=== PATIENT | female | born 1975 | race Hispanic/Latino ===

== ENCOUNTER 2018-07-25 15:06 | Emergency (ER) | payer BC | END 2018-07-25 16:41 | disposition home or self-care (01) | LOC: EDH 15:06 | DX: S93.492A Sprain of other ligament of left ankle, initial encounter (principal); Z90.49 Acquired absence of other specified parts of digestive tract; X50.1XXA Overexertion from prolonged static or awkward postures, initial encounter; Y93.89 Activity, other specified; Y92.89 Other specified places as the place of occurrence of the external cause; Y99.8 Other external cause status | CPT/HCPCS: 73610 ==

== ENCOUNTER 2021-08-03 23:37 | Emergency (ER) | payer BC, OTHER ==
[~2021-08-03] VITALS: Ht 162.6 cm; Wt 74.8 kg
[2021-08-04 02:14] VITALS: BP 115/88
[2021-08-04] MEDS ORDERED: DOXY-336 PO (02:25)
[2021-08-04] MEDS ORDERED: ALBUHFA IH (02:25)
== END 2021-08-04 02:36 | disposition home or self-care (01) ==
LOC: EDH 23:37
DX: S60.031A Contusion of right middle finger without damage to nail, initial encounter (principal); J20.8 Acute bronchitis due to other specified organisms; E78.00 Pure hypercholesterolemia, unspecified; Z20.822 Contact with and (suspected) exposure to COVID-19; Z90.89 Acquired absence of other organs; Z98.890 Other specified postprocedural states; X58.XXXA Exposure to other specified factors, initial encounter; Y93.89 Activity, other specified; Y92.89 Other specified places as the place of occurrence of the external cause; Y99.8 Other external cause status
CPT/HCPCS: 71045; 73140; 87635; 87804 ×2; 87880; 99284; C9803

== ENCOUNTER 2021-08-16 19:08 | Emergency (ER) | payer BC ==
[~2021-08-16] VITALS: Ht 165.1 cm; Wt 74.8 kg
[~2021-08-16 19:08] MED LIST: ALBUHFA IH; DOXY-336 PO
[2021-08-16] MEDS ORDERED: FAMOTIDINE 20MG TAB ONE (19:46)
[2021-08-16] MEDS ORDERED: DIPHENHYDRAMINE HCL 25 MG CAPSULE ONE ×2 (19:46→19:47)
[2021-08-16] MEDS ORDERED: IBUPROFEN 800 MG TAB ONE (19:46)
[2021-08-16] MEDS ORDERED: DIPHENHYDRAMINE HCL 25 MG CAPSULE PO ONE (20:00)
[2021-08-16] MEDS ORDERED: IBUPROFEN 800 MG TAB PO ONE (20:00)
[2021-08-16] MEDS ORDERED: FAMOTIDINE 20MG TAB PO ONE (20:00)
[2021-08-16] MEDS ORDERED: LORA-868 PO (20:40)
[2021-08-16] MEDS ORDERED: IBUP-1673 PO (20:40)
[2021-08-16 20:58] VITALS: BP 134/78
== END 2021-08-16 21:05 | disposition home or self-care (01) ==
LOC: EDH 19:08
DX: J06.9 Acute upper respiratory infection, unspecified (principal); Z20.822 Contact with and (suspected) exposure to COVID-19; Z79.1 Long term (current) use of non-steroidal anti-inflammatories (NSAID); Z90.49 Acquired absence of other specified parts of digestive tract
CPT/HCPCS: 87635; 87804 ×2; 99283; C9803; Q0163 ×2